=== PATIENT | female | born 1980 | race Caucasian/White ===

== ENCOUNTER 2020-07-23 18:17 | Emergency (ER) | payer OTHER ==
--- NOTE | 2020-07-23 18:25 | PDOC ---
Rapid Medical Evaluation Chief Complaint: Pain, Acute Time Seen by Provider: 07/23/20 18:22 Medical Evaluation: Allergies Allergy/AdvReac Type Severity Reaction Status Date / Time No Known Drug Allergies Allergy Verified 02/06/17 00:26 07/23/20 18:24 I performed a brief in-person evaluation of this patient. 40 y/o female presents to the ED with R leg pain. She states the pain has increased after her workout. She has been taking Advil and Advil PM without relief. Pertinent physical exam findings: Tenderness over the Right IT band. No discrepancy in leg size, no calf tenderness, FROM, walking with a cane I have ordered the following: none Patient to proceed to ED for further evaluation. Discharge Disposition - Diagnosis Right leg pain - Referrals - Patient Instructions - Post Discharge Activity
[2020-07-23 18:26] VITALS: BP 131/84; PULSE 97; TEMP 98.8; BMI 49.1
--- NOTE | 2020-07-23 18:57 | PDOC ---
History of Present Illness - General Chief Complaint: Pain, Acute Stated Complaint: RS LEG PAIN- UNSPECIFIED Time Seen by Provider: 07/23/20 18:22 - History of Present Illness Initial Comments: 07/23/20 18:55 40-year-old female presents for evaluation of right lower leg pain x3 weeks no systemic symptoms mild lower back pain pain exacerbated after working out Past History - Medical History Allergies/Adverse Reactions: Allergies Allergy/AdvReac Type Severity Reaction Status Date / Time No Known Drug Allergies Allergy Verified 07/23/20 18:26 Home Medications: Ambulatory Orders Nitrofurantoin Monohyd/M-Cryst [Macrobid -] 100 mg PO BID #14 capsule 02/06/17 Cyclobenzaprine HCl [Flexeril 10 mg] 10 mg PO HS PRN #10 tablet 07/23/20 Ibuprofen [Motrin -] 600 mg PO TID #30 tablet 07/23/20 COPD: No Dementia: No Diabetes: No GI Disorders: No HTN: Yes Psychiatric Problems: Yes (depression SCHIZOPHRENIA) - Surgical History Abdominal Surgery: Yes - Reproductive History Is Patient Now?: No (#): 1 Para: 1 Cervical CA: No Dysfunctional Uterine Bleeding: No Ectopic : No Endometrial CA: No Polycystic Ovaries: No Therapeutic (s) & number: No Tubal Ligation: No Spontaneous : 0 - Immunization History Immunization Up to Date: Yes - Psycho-Social/Smoking History Smoking Status: No Smoking History: Current every day smoker Have you smoked in the past 12 months: Yes Number of Cigarettes Smoked Daily: 10 If you are a former smoker, when did you quit?: MONTH Cigars Per Day: 0 Information on smoking cessation initiated: No 'Breaking Loose' booklet given: 11/05/16 - Substance Abuse Hx (Audit-C & DAST Scrn) How often the patient has a drink containing alcohol: Never Score: In Men: 4 or > Positive; In Women: 3 or > Positive: 0 Screen Result (Pos requires Nsg. Audit-10AR): Negative In the last yr the pt used illegal drug/Rx for NonMed reason: No Score: Yes response is considered Positive: 0 Screen Result (Positive result requires Nsg. DAST-10): Negative Review of Systems - Review of Systems Musculoskeletal: Yes: Back Pain *Physical Exam - Vital Signs Last Vital Signs Temp Pulse Resp BP Pulse Ox 98.8 F 97 H 17 131/84 100 07/23/20 18:23 07/23/20 18:23 07/23/20 18:23 07/23/20 18:23 07/23/20 18:23 - Physical Exam 07/23/20 18:56 Lumbar spine skin color temperature normal range of motion is slightly decreased. No midline tenderness. Moderate bilateral paralumbar musculature spasm and tenderness 5 out of 5 strength bilateral lower extremities without gross sensorimotor deficits thighs and calves are soft and nontender neurovascular intact Medical Decision Making - Medical Decision Making 07/23/20 18:56 Lumbar radiculopathy patient assures me there is no chance of . Ibuprofen and Flexeril follow-up with Ortho I have reviewed the pathophysiology with the patient. They are in agreement with the treatment plan all questions were answered to their satisfaction. Understanding for follow-up without fail was also conveyed to the patient. Again they are in agreement. Discharge - Discharge Information Problems reviewed: Yes Clinical Impression/Diagnosis: Right leg pain, Lumbar radiculopathy Condition: Stable Disposition: HOME - Admission No - Additional Discharge Information Prescriptions: Cyclobenzaprine HCl [Flexeril 10 mg] 10 mg PO HS PRN #10 tablet PRN Reason: Muscle Spasms Ibuprofen [Motrin -] 600 mg PO TID #30 tablet - Follow up/Referral Referrals: Reji Sandhu II, DO [Primary Care Provider] - Georges Salmon MD, FAANS [Staff Physician] - - Patient Discharge Instructions Additional Instructions: Return to the emergency room for worsening symptoms. Please take the medication as directed and without fail follow-up with orthopedic spine surgery in 1 to 2 days for further evaluation and treatment options. If you need additional pain control you may take Tylenol as directed on top of the medication prescribed. Return to the emergency room at any time for further evaluation and treatment should you have further problems with your pain gets worse. - Post Discharge Activity
== END 2020-07-23 18:59 | disposition home or self-care (01) ==
LOC: JERFT 18:17 → JER 18:17 → JERFT 18:59
DX: M79.604 Pain in right leg (principal)
CPT/HCPCS: 99282-25

== ENCOUNTER 2020-12-09 19:26 | Emergency (ER) | payer BC, OTHER ==
[2020-12-09 19:33] VITALS: TEMP 98.5; BMI 37.2
[2020-12-09 20:33] VITALS: BP 146/93; PULSE 88
== END 2020-12-09 20:37 | disposition home or self-care (01) ==
LOC: JER 19:26
DX: R03.0 Elevated blood-pressure reading, without diagnosis of hypertension (principal)
CPT/HCPCS: 99281-25

== ENCOUNTER 2021-04-29 13:39 | Emergency (ER) | payer OTHER ==
[2021-04-29 14:00] VITALS: BP 121/88; PULSE 94; TEMP 97.6; BMI 32.0
== END 2021-04-29 15:07 | disposition home or self-care (01) ==
LOC: JER 13:39
DX: R09.81 Nasal congestion (principal); M79.10 Myalgia, unspecified site; Z11.52 Encounter for screening for COVID-19
CPT/HCPCS: 99283-25; C9803; U0003; U0005